=== PATIENT | female | born 1995 ===

== ENCOUNTER → 2018-10-23 13:47 | Outpatient (CLI) | payer OTHER, MEDICAID, SELFPAY | PROVIDERS: PCP Obstetrics & Gynecology; Visit Provider Obstetrics & Gynecology | DX: Z34.91 Encounter for supervision of normal pregnancy, unspecified, first trimester (principal) ==

== ENCOUNTER → 2018-11-06 12:00 | Day surgery (SDC) | payer OTHER, MEDICAID, SELFPAY ==
[2018-10-30 12:03] VITALS: BMI 20.5
[2018-11-03] MEDS: LACTATED RINGERS 1,000 ML 42 ML IV (09:54)
[2018-11-03 09:55] VITALS: BP 124/83; PULSE 88; RESP 16; TEMP 36.6; O2SAT 100; BMI 20.5
== END ==
PROVIDERS: PCP Obstetrics & Gynecology; Visit Provider Obstetrics & Gynecology

== ENCOUNTER → 2018-12-13 13:51 | Outpatient (CLI) | payer OTHER, MEDICAID, SELFPAY ==
[2018-12-18 11:01] LABS: AFP, Serum 36.7 ng/mL; Calc Gestational Age 15.7; Cigarette Smoker NOT GIVEN; Donated Egg NOT GIVEN; Donor Egg Age NOT GIVEN; Estriol, Free 0.65 ng/mL; Inhibin A, Dimeric 131 pg/mL; Maternal Ethnicity NOT GIVEN; Maternal Weight 124 lbs; Number of Fetuses NOT GIVEN; Previous Pregnancy Down Syndro N; hCG, MoM 0.78; hCG, Serum 32.6 IU/mL
== END ==
PROVIDERS: PCP Obstetrics & Gynecology; Visit Provider Obstetrics & Gynecology
DX: Z34.82 Encounter for supervision of other normal pregnancy, second trimester (principal)
CPT/HCPCS: 36415; 82105; 82677; 84702; 86336

== ENCOUNTER → 2019-01-02 17:45 | Outpatient (CLI) | payer OTHER, MEDICAID, SELFPAY ==
[2019-01-02 18:02] LABS: Add Manual Diff / Slide Review NO; Basophils Absolute Auto 100 /uL (0-100); Basophils Percent Auto 0.8 % (0-2); Eosinophils Absolute Auto 100 /uL (0-450); Eosinophils Percent Auto 0.9 % (2-4); Hematocrit 38.9 % (36-46); Hemoglobin 12.6 g/dL (12.0-16.0); Lymphocytes Absolute Auto 2600 /uL (1100-4500); Lymphocytes Percent Auto 27.2 % (25-40); Mean Corpuscular HGB Conc 32.5 % (30-36); Mean Corpuscular Hemoglobin 26.3 PG (26-34); Mean Corpuscular Volume 80.9 fL (80-100); Monocytes Absolute Auto 500 /uL (0-900); Monocytes Percent Auto 5.7 % (3-14); Neutrophils Absolute Auto 6300 /uL (1500-7000); Neutrophils Percent Auto 65.4 % (50-75); Platelet Count 321 X10^3/uL (150-400); Red Cell Distribution Width 14.5 % (11.6-14.8); White Blood Cell Count 9.7 X10^3/uL (4.5-11.0)
[2019-01-02 18:24] LABS: Appearance Urine UA CLEAR; Bilirubin Urine UA NEGATIVE (NEGATIVE); Color Urine UA YELLOW; Glucose Urine UA TRACE g/dL (Negative); Ketones Urine UA TRACE (NEGATIVE); Leukocyte Esterase Urine UA NEGATIVE (NEGATIVE); Nitrite Urine UA NEGATIVE (Negative); Occult Blood Urine UA NEGATIVE (Negative); Protein Urine UA NEGATIVE (Negative); Specific Gravity Urine UA >=1.030 (1.000-1.035); Urobilinogen Urine UA 0.2 E.U./dL (0.2); pH Urine UA 5.5 (4.5-8.0)
[2019-01-02 19:03] LABS: Hepatitis B Surface Antigen NEGATIVE s/c (NEGATIVE); Rubella Antibody IgG 96.6 IU/mL (>15)
[2019-01-02 19:13] LABS: HIV 1 and 2 Antibody NEGATIVE (NEGATIVE); Hep C Virus Ab w/Reflex Quant NEGATIVE s/c (NEGATIVE)
[2019-01-04 19:51] LABS: RPR Screen Nonreactive (Nonreactive)
== END ==
PROVIDERS: PCP Obstetrics & Gynecology; Visit Provider Obstetrics & Gynecology
DX: Z34.82 Encounter for supervision of other normal pregnancy, second trimester (principal)
CPT/HCPCS: 36415; 80055; 81003; 86703; 86787; 86803; 86850; 86900; 86901; 87077; 87086

== ENCOUNTER → 2019-01-25 12:07 | Outpatient (CLI) | payer OTHER, MEDICAID, SELFPAY ==
--- NOTE | 2019-01-25 12:09 | DI.US.S_ITS ---
PROCEDURE: US OB >= 14 WEEKS FETUS INDICATIONS: ANATOMY OUTSIDE/PRIOR DATING DATA: Last menstrual period (LMP): 08/25/18. LMP-based estimated date of delivery (DOMENICO): 06/01/19. First dating scan (date and location): 10/23/18. Estimated date of delivery (DOMENICO) from first dating scan: 06/02/19. TECHNIQUE: Real-time scanning was performed of the fetus, with image documentation and biometric measurements. Endovaginal scanning: None COMPARISON: [facility], , OB >= 14 WEEKS FETUS, 12/12/2018, 8:48. FINDINGS: General: A single living intrauterine gestation is present. Presentation: Breech to transverse with head to the maternal right. Placenta: Placental position is anterior, without previa Amniotic fluid index: 14.1 cm, normal range is 5-24 cm. heart rate: 157 beats per minute. Maternal cervical canal: 3.1 cm long. Normal lower limit is 2.5 cm. biometrics: Biparietal diameter: 22 weeks 1 day Head circumference: 22 weeks Abdominal circumference: 23 weeks 1 day Femur length: 21 weeks 4 days Estimated gestational age from initial scan: 21 weeks 5 days Composite gestational age from present scan: 22 weeks 2 days Estimated weight and percentile: 500 g; 79th percentile Measurement variability for biometric dating: +/- 7 days from 14 weeks to 15 weeks 6 days gestation, +/- 10 days from 16 weeks to 21 weeks 6 days gestation, +/- 2 weeks from 22 weeks to 27 weeks 6 days gestation, +/- 3 weeks for 28 weeks gestation or later. weight reference: 4500 g or EFW >90/95% is considered macrosomia or large for gestational age. EFW <10% is small for gestational age. EFW 5% or less is considered intra-uterine growth restriction. Anatomic survey: Neuro: Ventricles are non-dilated at less than 10 mm. Cisterna magna is normal at 3-11 mm. Cerebellum is normal in size and morphology. Nuchal skin fold: Normal at less than 6 mm between 14-21 weeks gestational age. Face: Nose and lips, facial profile are normal. Spine: No evidence for spina bifida. Heart: 4-chambered heart is present, with normal ventricular outflow tracts. Diaphragm: Diaphragm is intact. Stomach: Left-sided stomach is present. Kidneys: No hydronephrosis. Normal is less than 5 mm in 2nd trimester, less than 7 mm in 3rd trimester. Cord: 3-vessel cord has orthotopic insertion. Bladder: Normal in size. Extremities: All 4 extremities identified. IMPRESSION: 1. Single living IUP redemonstrated and interval growth is normal. 2. Normal anatomic survey. Dictated by: Fredy Armstrong [facility] Interpreted: Garth Branch MD on 01/25/2019 at 14:05 Approved by: Handy Novak M.D. on 01/25/2019 at 17:40
== END ==
PROVIDERS: PCP Obstetrics & Gynecology; Visit Provider Obstetrics & Gynecology
DX: Z34.82 Encounter for supervision of other normal pregnancy, second trimester (principal); Z3A.22 22 weeks gestation of pregnancy
CPT/HCPCS: 76811

== ENCOUNTER 2019-02-11 14:26 | Outpatient (CLI) | payer OTHER, MEDICAID, SELFPAY | END 2019-02-11 15:14 | disposition home or self-care (01) | LOC: LABOR 15:14 → OB 02-13 16:37 | PROVIDERS: PCP Obstetrics & Gynecology | DX: O36.8120 Decreased fetal movements, second trimester, not applicable or unspecified (principal); Z3A.24 24 weeks gestation of pregnancy | CPT/HCPCS: 59025; G0378; G0379 ==

== ENCOUNTER → 2019-04-06 16:19 | Outpatient (CLI) | payer OTHER, MEDICAID, SELFPAY ==
[2019-04-06 18:27] LABS: Hematocrit 32.1 % (36-46); Hemoglobin 10.4 g/dL (12.0-16.0)
[2019-04-06 18:51] LABS: GTT (PREG) 1 Hour PP 50gm Dose 105 mg/dL (76-139)
== END ==
PROVIDERS: PCP Obstetrics & Gynecology; Visit Provider Obstetrics & Gynecology
DX: Z34.82 Encounter for supervision of other normal pregnancy, second trimester (principal)
CPT/HCPCS: 36415; 82950; 85014; 85018

== ENCOUNTER → 2019-05-08 12:12 | Outpatient (CLI) | payer OTHER, MEDICAID, SELFPAY ==
[2019-05-09 14:32] LABS: Strep Grp B PCR NEG for Grp B Strep
== END ==
PROVIDERS: PCP Obstetrics & Gynecology; Visit Provider Obstetrics & Gynecology
DX: Z34.83 Encounter for supervision of other normal pregnancy, third trimester (principal); Z36.85 Encounter for antenatal screening for Streptococcus B; Z3A.36 36 weeks gestation of pregnancy
CPT/HCPCS: 87653

== ENCOUNTER 2019-07-27 08:49 | Emergency (ER) | payer OTHER, MEDICAID, SELFPAY ==
[2019-07-27 09:15] VITALS: BP 155/89; PULSE 70; RESP 16; TEMP 36.4; O2SAT 100
--- NOTE | 2019-07-27 09:32 | ED.NAVMDI ---
HPI - Nausea/Vomiting/Diarrhea General Chief complaint: Nausea/Vomiting/Diarrhea Stated complaint: low back pain/nausea x3 days Time Seen by Provider: 07/27/19 09:26 Source: patient Mode of arrival: Ambulatory Limitations: no limitations History of Present Illness HPI Narrative: The patient is a 24-year-old female who presents with nausea. She was actually discharged from [facility] yesterday after being placed in observation for intractable nausea vomiting and metabolic acidosis. During her stay she was found to be slightly acidotic which was corrected with IV fluids. She also had a CT as well. She says that she was able to eat dinner last night and was okay however by this morning she had a banana and started feeling nauseous she is just dry heaving. She has Zofran at home which she says she has been taking for 3 years in it no longer helps. She has no abdominal pain she is not actively vomiting. MD complaint: nausea Onset (ago): day(s) Description of Diarrhea: none Related Data Home Medications Medication Instructions Recorded Confirmed norethindrone (contraceptive) 0.35 mg PO DAILY 07/27/19 07/27/19 [Norlyda] Previous Rx's Medication Instructions Recorded metoclopramide HCl [Reglan] 10 mg PO Q6H PRN #10 tab 07/27/19 Allergies Allergy/AdvReac Type Severity Reaction Status Date / Time No Known Drug Allergies Allergy Verified 10/30/18 12:17 Review of Systems Review of Systems Narrative: GENERAL: Denies chills, fatigue, malaise, fever, sweats, travel HEENT: Denies sinus pain, ear pain, sore throat, difficulty swallowing, neck pain RESPIRATORY: Denies dyspnea, cough, wheezing, hemoptysis, sputum. CARDIOVASCULAR: Denies chest pain, palpitations, orthopnea, edema GASTROINTESTINAL: See HPI : Denies dysuria, frequency, incontinence, hematuria, urinary retention, flank pain. MUSCULOSKELETAL: Denies weakness, joint pain, or bony pain SKIN: No rash, no erythema, no pruritus NEUROLOGIC: Denies weakness, dizziness, headache, numbness, change in speech, confusion PSYCHIATRIC: No concerning psychosocial issues. 12 point review of systems is negative except for those stated above and HPI Patient History Medical History Asthma (Acute) Fracture (Acute) Normal vaginal delivery (Acute ~11/2017) Social History household members: significant other and children Smoking Status: Unknown if ever smoked Social History household members: significant other and children Smoking Status: Unknown if ever smoked Substance Use Type: does not use Exam Initial Vital Signs Initial Vital Signs: Vital Signs Temperature 97.6 F 07/27/19 09:15 Pulse Rate 70 07/27/19 09:15 Respiratory Rate 16 07/27/19 09:15 Blood Pressure 155/89 H 07/27/19 09:15 Pulse Oximetry 100 07/27/19 09:15 GENERAL: Well-appearing, well-nourished and in no acute distress. HEENT: Head atraumatic,EOMI, pupils reactive, face symmetric, moist mucous membranes CARDIOVASCULAR: Regular rate and rhythm without murmurs, rubs or gallops. RESPIRATORY: Breath sounds equal bilaterally, no wheezes rales or rhonchi. ABDOMEN: Soft, minimal epigastric pain, no guarding or rebound. EXTREMITIES: Normal range of motion, no clubbing or edema. Neurovascularly intact NEUROLOGICAL: Alert and oriented x4.Normal gait and speech. Cranial nerves II through XII grossly intact. SKIN: Warm, dry, no laceration, no petechiae, no rashes or lesions. Course Orders Ordered: ED Orders 07/27/19 10:10 Complete Blood Count AUTO DIFF Stat Comprehensive Metabolic Panel Stat Discontinued Medications Sodium Chloride (Normal Saline 0.9%) 1,000 mls @ 1,000 mls/hr IV BOLUS ONE Stop: 07/27/19 10:40 Last Infusion: 07/27/19 11:49 Dose: 999 mls/hr Documented by: [email or web address] Infusion: 07/27/19 10:55 Dose: 999 mls/hr Documented by: Admin: 07/27/19 10:26 Dose: 1,000 mls/hr Documented by: LORETAT Metoclopramide HCl (Reglan) 10 mg IV NOW ONE Stop: 07/27/19 09:42 Last Admin: 07/27/19 10:24 Dose: 10 mg Documented by: CPRPIERCET Ondansetron HCl (Zofran Odt) 4 mg SL NOW ONE Stop: 07/27/19 09:36 Last Admin: 07/27/19 09:46 Dose: 4 mg Documented by: YVON Pantoprazole Sodium (Protonix) 40 mg IV NOW ONE Stop: 07/27/19 09:42 Last Admin: 07/27/19 10:25 Dose: 40 mg Documented by: YVON Vital Signs Vital signs: Vital Signs - 8 hr 07/27/19 09:15 07/27/19 11:51 Temperature 97.6 F Pulse Rate 70 78 Respiratory Rate 16 16 Blood Pressure 155/89 H Blood Pressure [Right Arm] 147/94 H Pulse Oximetry 100 97 MDM - Nausea/Vomiting/Diarrhea Lab Data Attestation: I reviewed the patient's lab results. Result diagrams: 07/27/19 10:10 07/27/19 10:10 Labs: Lab Results 07/27/19 07/27/19 Range/Units 10:10 10:10 WBC 7.7 (4.5-11.0) X10^3/uL RBC 5.34 H (4.0-5.2) X10^6/uL Hgb 13.5 (12.0-16.0) g/dL Hct 39.9 (36-46) % MCV 74.8 L (80-100) fL MCH 25.2 L (26-34) PG MCHC 33.7 (30-36) % RDW 24.0 H (11.6-14.8) % Plt Count 334 (150-400) X10^3/uL Neut % (Auto) 76.4 H (50-75) % Lymph % (Auto) 18.1 L (25-40) % Forrest % (Auto) 4.7 (3-14) % Eos % (Auto) 0.1 L (2-4) % Baso % (Auto) 0.7 (0-2) % Neut # (Auto) 5900 (3702-9907) /uL Lymph # (Auto) 1400 (1161-2012) /uL Forrest # (Auto) 400 (0-900) /uL Eos # (Auto) 0 (0-450) /uL Baso # (Auto) 100 (0-100) /uL RBC Morphology See below Poikilocytosis 1+ H Anisocytosis 2+ H Schistocytes 1+ H Sodium 139 (137-145) mmol/L Potassium 3.7 (3.4-5.1) mmol/L Chloride 100 (98-107) mmol/L Carbon Dioxide 23 (22-32) mmol/L BUN 14 (7-17) mg/dL Creatinine 0.50 L (0.52-1.04) mg/dL Estimated GFR > 60.0 (>60) mL/min BUN/Creatinine Ratio 28.0 H (6-22) Glucose 95 (70-100) mg/dL Calcium 9.8 (8.4-10.2) mg/dL Total Bilirubin 1.2 (0.2-1.3) mg/dL AST 43 H (14-36) IU/L ALT 31 (9-52) IU/L Alkaline Phosphatase 96 (38-126) U/L Total Protein 8.5 H (6.3-8.2) g/dL Albumin 5.3 H (3.5-5.0) g/dL Globulin 3.2 (1.7-4.1) g/dL Albumin/Globulin Ratio 1.7 (1.0-2.8) MDM Narrative Medical decision making narrative: Patient is sleeping. She actually has not had any vomiting in the ED. Blood work overall looks much better than it did a few days ago from [facility]. His she is given Reglan as a prescription, she responded to it well in the ED. Discussed oral rehydration technique with her. No need for admission. Discharge Plan Departure Patient Disposition: Home Clinical Impression: Nausea Discharge Date/Time: 07/27/19 11:54 Instructions: DI for Nausea -- Adult Activity Restrictions/Additional Instructions: 1) You have been diagnosed with nausea 2) What to do: Drink frequent but small amounts of fluids. I recommend Gatorade or a Gatorade-like product, as it has small amounts of sugar and salts that improve fluid retention. 3) Take medications as directed Reglan 10 mg every 6-8 hours if needed for nausea or vomiting-->[facility] [place] Zofran 4 mg every 8 hours needed for nausea or vomiting as previously prescribed 4) Follow up with your primary care provider in 2-3 days 5) Return to ER if you should have any new or worsening symptoms such as, unable to hold down fluids despite use of anti-nausea medications and the small volume oral rehydration strategy. Prescriptions: New metoclopramide HCl [Reglan] 10 mg tablet 10 mg PO Q6H PRN (Reason: nausea and vomiting) Qty: 10 RF: 0 No Action norethindrone (contraceptive) [Norlyda] 0.35 mg tablet 0.35 mg PO DAILY RF: 0 Referrals: Keely Riggs MD [Primary Care Provider] -
[2019-07-27] MEDS: ONDANSETRON 4 MG ODT SL (09:46)
[2019-07-27 10:23] LABS: Add Manual Diff / Slide Review NO; Basophils Absolute Auto 100 /uL (0-100); Basophils Percent Auto 0.7 % (0-2); Eosinophils Absolute Auto 0 /uL (0-450); Eosinophils Percent Auto 0.1 % (2-4); Hematocrit 39.9 % (36-46); Hemoglobin 13.5 g/dL (12.0-16.0); Lymphocytes Absolute Auto 1400 /uL (1100-4500); Lymphocytes Percent Auto 18.1 % (25-40); Mean Corpuscular HGB Conc 33.7 % (30-36); Mean Corpuscular Hemoglobin 25.2 PG (26-34); Mean Corpuscular Volume 74.8 fL (80-100); Monocytes Absolute Auto 400 /uL (0-900); Monocytes Percent Auto 4.7 % (3-14); Neutrophils Absolute Auto 5900 /uL (1500-7000); Neutrophils Percent Auto 76.4 % (50-75); Platelet Count 334 X10^3/uL (150-400); Red Blood Cell Count 5.34 X10^6/uL (4.0-5.2); White Blood Cell Count 7.7 X10^3/uL (4.5-11.0)
[2019-07-27] MEDS: METOCLOPRAMIDE 10 MG/2 ML INJ IV (10:24)
[2019-07-27] MEDS: PANTOPRAZOLE 40 MG VIAL IV (10:25)
[2019-07-27] MEDS: SODIUM CHLORIDE 0.9% 1,000 ML 1000 ML IV (10:26)
[2019-07-27 10:29] LABS: Alanine Aminotransferase 31 IU/L (9-52); Albumin 5.3 g/dL (3.5-5.0); Albumin Globulin Ratio 1.7 (1.0-2.8); Alkaline Phosphatase 96 U/L (38-126); Aspartate Aminotransferase 43 IU/L (14-36); Bilirubin Total 1.2 mg/dL (0.2-1.3); Blood Urea Nitrogen 14 mg/dL (7-17); Calcium 9.8 mg/dL (8.4-10.2); Carbon Dioxide 23 mmol/L (22-32); Chloride 100 mmol/L (98-107); Estimated Glomerular Filt Rate > 60.0 mL/min (>60); Globulin 3.2 g/dL (1.7-4.1); Glucose 95 mg/dL (70-100); HEMOLYSIS 28 (0-50); Potassium 3.7 mmol/L (3.4-5.1); Sodium 139 mmol/L (137-145); Total Protein 8.5 g/dL (6.3-8.2)
[2019-07-27 11:27] LABS: Anisocytosis 2+; Poikilocytosis 1+; Schistocytes 1+
[2019-07-27 11:51] VITALS: BP 147/94; PULSE 78; RESP 16; O2SAT 97
== END 2019-07-27 11:54 | disposition home or self-care (01) ==
PROVIDERS: Emergency Provider Emergency Medicine; PCP Obstetrics & Gynecology
DX: R11.0 Nausea (principal)
CPT/HCPCS: 36415; 80053; 85025; 96361; 96374; 96375; 99283; 99284; C9113; J2765